=== PATIENT | male | born 1985 | race Caucasian/White ===

== ENCOUNTER → 2017-08-10 | Outpatient (CLI) | payer OTHER ==
[~2017-08-10] MED LIST: CHOL20009; DALF10TA; GABA1CAP PO; GADAVIST IV PRN; VENL150C PO
--- NOTE | 2017-08-10 13:30 | DIAGNOSTIC IMAGING REPORT ---
Brain MRI WITH AND WITHOUT CONTRAST HISTORY: Dizziness. G35 Multiple [id number] TECHNIQUE: Multiplanar multisequence MRI of the brain was performed both before and after the intravenous administration of contrast. COMPARISON STUDY: Brain MRI 07/09/2016. FINDINGS: No areas of restricted diffusion to suggest acute infarction. The midline structures are intact. There again noted multiple scattered T2 hyperintense lesions seen throughout the periventricular white matter, thalami, brainstem, and cerebellum. These are not significantly changed in size, number, or distribution and are consistent with the patient's history of multiple sclerosis. The orbits are unremarkable. Paranasal sinuses and mastoid air cells are clear. Major vascular flow-voids at the skull base are well-maintained. The ventricles are normal in size. No mass, hematoma, midline shift, or acute infarct. There appears to be a faint focus of enhancement within the periventricular white matter of the left cerebellar hemisphere. This measures 5 mm and is best seen on axial T1 postcontrast image 6. This favors a focus of active demyelination. This is new from the prior study. IMPRESSION: 1. A new 5 mm focus of enhancement within the periventricular white matter of the left cerebellar hemisphere. This likely represents active demyelination. 2. Otherwise, the remaining white matter plaques throughout the supratentorial and infratentorial brain are not significantly changed and are consistent with the patient's history of multiple sclerosis. Electronically signed by: Melecio Ac M.D. 08/10/2017 1:29 PM Dictated Date/Time: 08/10/2017 1:17 PM
== END | disposition home or self-care (01) ==
LOC: C.MRIBC 12:20
PROVIDERS: ATTEND Psychiatry & Neurology Neurology
DX: G35 Multiple sclerosis (principal)

== ENCOUNTER → 2018-02-08 | Day surgery (SDC) | payer OTHER ==
[2018-01-24 08:24] VITALS: BMI 22.0
[~2018-02-08] VITALS: Ht 180.3 cm; Wt 71.8 kg
[~2018-02-08] MED LIST changes: +ATROPINE SULFATE 0.1 MG/ML 5ML SYR IV PRN; +BACL10TA PO; +BUPIVACAINE 0.5 % 5 MG/1 ML MPF 30ML VIAL ONE; +CEFAZOLIN 2000MG IV PUSH 15 ML IV SCH; +CHOL2000 PO; -CHOL20009; -DALF10TA; +DALF10TA PO; +EpHEDrine SULFATE INJ 50 MG/ML AMP IV PRN; +FENTANYL CITRATE INJ 50 MCG/1 ML 2 ML VIAL IV PRN; +FENTANYL CITRATE INJ 50 MCG/1 ML 2 ML VIAL ONE; +GABA100C13 PO; -GABA1CAP PO; -GADAVIST IV PRN; +HEPARIN SOD (PORCINE) 1000 UNIT/ML 10 ML VIAL ONE; +HYDR-5688 PO; +HYDROmorphone INJ 1 MG/ML SYR IV PRN; +KETOROLAC TROMETHAMINE 30 MG/ML VIAL IV. PRN; +LABETALOL HCL IV 5 MG/ML 20ML IV PRN; +LACTATED RINGER'S 1000ML 1,000 ML IV SCH; +LIDOCAINE HCL 2% 2 ML VIAL (20MG/ML) ONE; +LIDOCAINE/EPINEPHRINE 1% 20 ML VIAL ONE; +MEPERIDINE HCL 25 MG/ML CARP IV PRN; +MIDAZOLAM HCL 1 MG/ML 2ML VIAL ONE; +MoRPHine SULFATE 2 MG/ML CARP IV PRN; +MoRPHine SULFATE 4 MG/ML 1 ML CARP\\VIAL IV PRN; +NATA1INJ INJ; +ONDANSETRON INJ 2 MG/ML 2 ML VIAL IV PRN; +ONDANSETRON INJ 2 MG/ML 2 ML VIAL ONE; +OXYCODONE/ACETAMINOPHEN 5-325 TAB ONE; +OXYCODONE/ACETAMINOPHEN 5-325 TAB PO PRN; +PROPOFOL IV EMULSION 10 MG/ML 20 ML VIAL IV ONE; +SODIUM CHLORIDE 0.9% 1000ML 1,000 ML IV SCH
[2018-02-08 11:12] VITALS: BP 122/63; PULSE 83; TEMP 36.7; O2SAT 100; Ht 180.3 cm; Wt 71.8 kg
--- NOTE | 2018-02-08 12:19 | History & Physical Bridge Note ---
H&P Re-Evaluation Bridge Note: I have examined the patient, reviewed the History & Physical and in the interval since the performance of the History & Physical I have noted the following changes of clinical significance: Since patient's preop visit he was treated for Shigella with antibiotics and his symptoms have improved. No other changes noted
--- NOTE | 2018-02-08 12:22 | Discharge Instructions ---
Discharge Instructions Date of Service Feb 08, 2018. Visit Reason for Visit: Multiple Sclerosis Discharge Discharge Diagnosis / Problem: A-port placement Discharge Goals Goal(s): Decrease discomfort Activity Recommendations Activity Limitations: as noted below Shower/Bathe: no limitations Anesthesia . Post Anesthesia Instructions: If you have had General Anesthesia or IV Sedation: * Do not drive today. * Resume driving when surgeon permits. * Do not make important decisions or sign legal documents today. * Call surgeon for: 1. Temperature elevations greater than 101 degrees F. 2. Uncontrollable pain. 3. Excessive bleeding. 4. Persistent nausea and vomiting. 5. Medication intolerance (nausea, vomiting or rash). * For nausea and vomiting use only clear liquids such as: tea, soda, bouillon until nausea subsides, then gradually increase diet as tolerated. * If you have any concerns or questions, call your surgeon's office. If physician is unavailable and it is an emergency, call 911 or go to the nearest emergency room. . Instructions / Follow-Up Instructions / Follow-Up Dr. Elaine in 1-2 weeks as planned, call [phone] if you have any questions or need to schedule an appt Diet Recommendations Recommended Home Diet: no limitations Pending Studies Studies pending at discharge: no Medical Emergencies . Who to Call and When: Medical Emergencies: If at any time you feel your situation is an emergency, please call 911 immediately. . Non-Emergent Contact Non-Emergency issues call your: Surgeon Call Non-Emergent contact if: you have a fever, temperature is above 101.5, your pain is not controlled, you have any medication questions . . "Provider Documentation" section prepared by Ruben Sandoval. .
--- NOTE | 2018-02-08 13:42 | [facility] Post Operative Brief Note ---
Immediate Operative Summary Operative Date Feb 08, 2018. Pre-Operative Diagnosis Difficult Periperhal IV access Post-Operative Diagnosis Difficult Peripheral IV Access Procedure(s) Performed Insertion of Mediport Left Internal Jugular Artery Surgeon Dr. Constantino Elaine [employer] Mechanical Surgeon(s) None Estimated Blood Loss 6 ml Findings Consistent with Post-Op Diagnosis Left internal jugular vein PowerPort placed Specimens None per surgeon Drains None Anesthesia Type MAC Complication(s) none Disposition Accompanied Pt To Recover: no Disposition: Recovery Room / PACU
--- NOTE | 2018-02-08 13:50 | [facility] Operative Report ---
Operative Report Operative Date Feb 08, 2018. Pre-Operative Diagnosis Difficult Periperhal IV access Post-Operative Diagnosis Same Procedure(s) Performed Left internal jugular vein PowerPort placement using real-time ultrasound guidance and fluoroscopy Surgeon Dr. Constantino Elaine [employer] Manager Surgeon(s) None Estimated Blood Loss 6 ml Findings Left internal jugular accessed using real-time ultrasound guidance. Port placed to SVC/atrial junction with fluoroscopy guidance. Specimens None per surgeon Drains None Anesthesia MAC/local Complication(s) None Disposition Recovery Room / PACU Indications 32-year-old male with multiple sclerosis in need of permanent IV access due to difficult peripheral IV access, plan for port placement. The risks of the procedure were discussed, all questions were answered, and the patient agreed to proceed with surgery as planned. Description of Procedure The patient was properly identified, consented, and taken to the operating room where she was placed in the supine position with both arms tucked and a shoulder roll placed vertically. Monitored anesthesia care was induced. SCDs and a safety belt were placed. Preoperative antibiotics were administered. The patient's chest and neck was prepped and draped in the standard sterile fashion. Surgical timeout was performed and all parties were in agreement that this was the correct patient and procedure to be performed and we continued as planned. The patient was placed in Trendelenburg position. Local anesthetic was injected along the skin incision. Using real-time ultrasound guidance the left internal jugular vein was accessed on the first attempt using the access needle. The wire was placed the needle was removed. Fluoroscopy confirmed placement into the left internal jugular vein extending into the superior vena cava. A transverse skin incision was made in the left chest and a pocket was created for the port. A subcutaneous tunnel was created and the catheter was brought from the chest incision into the neck incision. The dilator and peel- away sheath were inserted over the wire. The catheter was then inserted through the peel-away sheath and fluoroscopy confirmed placement into the superior vena cava. The catheter was cut cm and attached to the port. The port was secured into place with 3-0 Prolene sutures. A final x-ray revealed good placement of the port. The wound was irrigated and hemostasis was confirmed. The skin was closed with interrupted 3-0 Vicryl deep dermal sutures , followed by 4-0 Monocryl running subcuticular suture. Dermabond was placed over the wounds. The port was accessed and nalini blood easily and flushed easily. It was flushed with heparinized saline. The patient taken to the PACU where she recovered without apparent incident. All sponge, instrument and needle counts were correct at the conclusion of the procedure. The patient tolerated the procedure well. A chest x-ray was pending in the PACU at the time of this dictation. I attest to the content of the Intraoperative Record and any orders documented therein. Any exceptions are noted below.
--- NOTE | 2018-02-08 13:52 | [facility] Operative Report ---
Operative Report Operative Date Feb 08, 2018. Pre-Operative Diagnosis Difficult Periperhal IV access Procedure(s) Performed Left internal jugular vein port placement with real-time ultrasound guidance and fluoroscopy Surgeon Dr. Constantino Elaine Findings Real-time ultrasound guidance was used to access the left internal jugular vein. Fluoroscopy was used throughout the case for positioning of the catheter and was interpreted by the surgeon. A total of 38.5 seconds of fluoroscopy was used I attest to the content of the Intraoperative Record and any orders documented therein. Any exceptions are noted below.
[2018-02-08 14:13] VITALS: BP 111/65; PULSE 85; TEMP 36.7; O2SAT 93
--- NOTE | 2018-02-08 14:36 | Anesthesiology Progress Note ---
Anesthesia Post Op Note Date & Time Feb 08, 2018 at 14:36 Vital Signs Pain Intensity: 5.0 Vital Signs Past 12 Hours Date Time Temp Pulse Resp B/P (MAP) Pulse Ox O2 Delivery O2 Flow Rate FiO2 02/08/18 14:05 36.1 85 16 107/71 97 Room Air 02/08/18 13:55 81 16 111/70 97 Room Air 02/08/18 13:46 36.0 86 16 109/63 97 Room Air 02/08/18 11:12 36.7 83 16 122/63 (82) 100 Room Air Notes Mental Status: alert / awake / arousable, participated in evaluation Pt Amnestic to Procedure: Yes Nausea / Vomiting: adequately controlled Pain: adequately controlled Airway Patency, RR, SpO2: stable & adequate BP & HR: stable & adequate Hydration State: stable & adequate Anesthetic Complications: no major complications apparent
[2018-02-08 14:43] VITALS: BP 127/73; PULSE 88; TEMP 36.7; O2SAT 93
--- NOTE | 2018-02-08 15:05 | DIAGNOSTIC IMAGING REPORT ---
CHEST ONE VIEW PORTABLE HISTORY: 32 years-old Male port placement status post placement of a left internal jugular Ofkbpm-[id number]-[id number] catheter COMPARISON: None available TECHNIQUE: Portable AP view of the chest FINDINGS: Left internal jugular Mrjmvs-n-Iuoe catheter has been placed with distal tip terminating within the expected region of the mid SVC. No postprocedural pneumothorax is identified. The cardiomediastinal and hilar silhouettes are within normal limits. No pleural effusion or focal airspace consolidation. No overt pulmonary edema. The bones of the chest appear grossly intact. IMPRESSION: Status post placement of a left internal jugular Zymiul-d-Snoz catheter with distal tip terminating in the region of the mid SVC. No postprocedural pneumothorax identified. The above report was generated using voice recognition software. It may contain grammatical, syntax or spelling errors. Electronically signed by: Charan Macdonald M.D. 02/08/2018 3:04 PM Dictated Date/Time: 02/08/2018 3:02 PM
== END | disposition home or self-care (01) ==
LOC: C.ACU 10:49
PROVIDERS: ATTEND Surgery
DX: G35 Multiple sclerosis (principal); F17.200 Nicotine dependence, unspecified, uncomplicated; F32.9 Major depressive disorder, single episode, unspecified; N31.9 Neuromuscular dysfunction of bladder, unspecified; E55.9 Vitamin D deficiency, unspecified; Z80.3 Family history of malignant neoplasm of breast; Z83.3 Family history of diabetes mellitus; Z82.49 Family history of ischemic heart disease and other diseases of the circulatory system; Z79.899 Other long term (current) drug therapy